=== PATIENT | female | born 1955 | race Caucasian/White ===

== ENCOUNTER 2022-01-29 13:32 | Observation (INO) | payer MEDICARE, OTHER ==
--- NOTE | 2022-01-29 14:54 | XR ---
EXAMINATION TYPE: XR chest 2V DATE OF EXAM: 01/29/2022 COMPARISON: NONE HISTORY: Shortness of breath TECHNIQUE: Frontal and lateral views of the chest are obtained. FINDINGS: Scattered senescent parenchymal changes noted. Hyperinflation compatible with COPD. Prominence of the pulmonary interstitium at the mid and lower lung zones. I cannot exclude atypical p neumonia. Correlate clinically. Heart size is stable. Mediastinal structures are stable and grossly unremarkable. No evidence for hilar prominence. Degenerative changes dorsal spine. IMPRESSION: 1. Prominence of the pulmonary interstitium at the mid and lower lung zones. I cannot exclude atypica l pneumonia. Correlate clinically.
--- NOTE | 2022-01-29 17:43 | ED ---
SOB HPI - General Chief Complaint: Shortness of Breath Stated Complaint: COPD Time Seen by Provider: 01/29/22 18:15 Source: patient Mode of arrival: ambulatory Limitations: no limitations - History of Present Illness Initial Comments: 66-year-old female past history of COPD, daily heroin use presents to the emergency room from [facility]. She states that she went to [facility] today to check and for rehab. They took admission vitals and found that the patient had oxygen saturations of 83% on room air. They watched her for approximately an hour without any improvement in her oxygen saturations. She does admit to a history of COPD however she does not wear oxygen and does not require the use of inhalers. Reports that she has not had any issues with hypoxia. She denies any fevers, chills or cough. No chest pain. No previous history cardiac disease. No calf pain or swelling. Due to her persistent hypoxia the patient was transported to the hospital. Later in the patient's evaluation she admits that she took 15 Klonopin at 9 AM this morning as she was told that she would not receive any of her benzos while in rehab. Patient does demonstrate some level of sedation however respirations remain normal. No other alleviating, precipitating or modifying factors - Related Data Home Medications Medication Instructions Recorded Confirmed Albuterol Sulfate [Albuterol 2 puff PO RT-QID PRN 01/29/22 01/29/22 Sulfate Hfa] Cyclobenzaprine [Flexeril] 10 mg PO TID 01/29/22 01/29/22 QUEtiapine FUMARATE [SEROquel] 200 mg PO BID 01/29/22 01/29/22 clonazePAM [KlonoPIN] 1 mg PO TID PRN 01/29/22 01/29/22 Previous Rx's Medication Instructions Recorded Budesonide-Formot 160-4.5 Mcg 2 puff INHALATION BID #1 each 01/30/22 [Symbicort 160-4.5 Mcg Inhaler] Ipratropium/Albuter 20-100Mcg 1 puff INHALATION QID #1 gm 01/30/22 [Combivent Respimat 20-100Mcg Inhaler] predniSONE 10 mg PO DIRECTED #30 tab 01/30/22 Allergies Allergy/AdvReac Type Severity Reaction Status Date / Time aspirin Allergy Unknown Verified 01/29/22 20:42 ibuprofen [From Motrin] Allergy Unknown Verified 01/29/22 20:42 Penicillins Allergy Unknown Verified 01/29/22 20:42 Review of Systems ROS Statement: Those systems with pertinent positive or pertinent negative responses have been documented in the HPI. ROS Other: All systems not noted in ROS Statement are negative. Past Medical History Past Medical History: COPD History of Any Multi-Drug Resistant Organisms: None Reported Additional Past Surgical History / Comment(s): orthopedic surgery Past Psychological History: No Psychological Hx Reported Smoking Status: Current every day smoker Past Alcohol Use History: Daily Past Drug Use History: Heroin General Exam Limitations: no limitations General appearance: alert, in no apparent distress, other (appears somewhat sedated) Head exam: Present: atraumatic, normocephalic, normal inspection Eye exam: Present: normal appearance, PERRL, EOMI. Absent: scleral icterus, conjunctival injection, periorbital swelling ENT exam: Present: normal exam, mucous membranes moist Neck exam: Present: normal inspection. Absent: tenderness, meningismus, lymphadenopathy Respiratory exam: Present: normal lung sounds bilaterally. Absent: respiratory distress, wheezes, rales, rhonchi, stridor Cardiovascular Exam: Present: regular rate, normal rhythm, normal heart sounds. Absent: systolic murmur, diastolic murmur, rubs, gallop, clicks GI/Abdominal exam: Present: soft, normal bowel sounds. Absent: distended, tenderness, guarding, rebound, rigid Extremities exam: Present: normal inspection, full ROM, normal capillary refill. Absent: tenderness, pedal edema, joint swelling, calf tenderness Back exam: Present: normal inspection Neurological exam: Present: alert, oriented X3, CN II-XII intact Psychiatric exam: Present: normal mood, flat affect Skin exam: Present: warm, dry, intact, normal color. Absent: rash Course Vital Signs 01/29/22 01/29/22 01/29/22 13:53 16:45 17:00 Temperature 98.0 F Pulse Rate 106 H 90 Respiratory 20 18 20 Rate Blood Pressure 98/61 O2 Sat by Pulse 97 94 L Oximetry 01/29/22 01/29/22 01/29/22 18:00 18:20 19:03 Temperature Pulse Rate 100 89 Respiratory 20 Rate Blood Pressure 102/58 O2 Sat by Pulse 88 L 92 L Oximetry 01/29/22 19:11 Temperature Pulse Rate 88 Respiratory Rate Blood Pressure O2 Sat by Pulse Oximetry Medical Decision Making - Medical Decision Making Arrival patient was placed into room 15. Thorough history and physical exam was performed. Laboratory studies are conducted and chest x-ray is performed. Chest x-ray demonstrates prominence of the mid and lower lung zones. Cannot exclude an atypical pneumonia. Laboratory studies revealed a lactic acid 2.1. Coumadin influenza are not detected. Troponin not detected. Patient was given a DuoNeb breathing treatment. She is additionally given 125 mg of Solu-Medrol. Blood cultures obtained. Patient given Rocephin and azithromycin. Results are discussed with the patient. She is requiring 3 L of oxygen at this time to maintain saturations of 93%. As the patient is oxygen dependent I did recommend admission for pulmonology consultation for which the patient was agreeable. Spoke with Dr. Faajrdo who agreed to admit the patient to the floor - Lab Data Result diagrams: 01/30/22 05:23 01/30/22 05:23 Lab Results 01/29/22 01/29/22 01/29/22 Range/Units 19:01 19:01 19:01 WBC 4.3 (3.8-10.6) k/uL RBC 4.41 (3.80-5.40) m/uL Hgb 14.2 (11.4-16.0) gm/dL Hct 43.4 (34.0-46.0) % MCV 98.4 (80.0-100.0) fL MCH 32.1 (25.0-35.0) pg MCHC 32.7 (31.0-37.0) g/dL RDW 13.1 (11.5-15.5) % Plt Count 102 L (150-450) k/uL MPV 9.3 Neutrophils % 55 % Lymphocytes % 33 % Monocytes % 6 % Eosinophils % 2 % Basophils % 1 % Neutrophils # 2.3 (1.3-7.7) k/uL Lymphocytes # 1.4 (1.0-4.8) k/uL Monocytes # 0.3 (0-1.0) k/uL Eosinophils # 0.1 (0-0.7) k/uL Basophils # 0.0 (0-0.2) k/uL PT 11.0 (9.0-12.0) sec INR 1.0 (<1.2) APTT 25.7 (22.0-30.0) sec D-Dimer 0.40 (<0.60) mg/L FEU Sodium 139 (137-145) mmol/L Potassium 4.1 (3.5-5.1) mmol/L Chloride 102 (98-107) mmol/L Carbon Dioxide 31 H (22-30) mmol/L Anion Gap 6 mmol/L BUN 47 H (7-17) mg/dL Creatinine 0.85 (0.52-1.04) mg/dL Est GFR (CKD-EPI)AfAm 84 (>60 ml/min/1.73 sqM) Est GFR (CKD-EPI)NonAf 72 (>60 ml/min/1.73 sqM) Glucose 146 H (74-99) mg/dL Lactic Ac Sepsis Rflx Plasma Lactic Acid Dontrell (0.7-2.0) mmol/L Calcium 8.5 (8.4-10.2) mg/dL Magnesium 2.2 (1.6-2.3) mg/dL Total Bilirubin 0.3 (0.2-1.3) mg/dL AST 30 (14-36) U/L ALT 17 (4-34) U/L Alkaline Phosphatase 95 (38-126) U/L Troponin I (0.000-0.034) ng/mL NT-Pro-B Natriuret Pep pg/mL Total Protein 6.8 (6.3-8.2) g/dL Albumin 4.1 (3.5-5.0) g/dL Coronavirus (PCR) (Not Detectd) Influenza Type A RNA (Not Detectd) Influenza Type B (PCR) (Not Detectd) 01/29/22 01/29/22 01/29/22 Range/Units 19:01 19:01 19:01 WBC (3.8-10.6) k/uL RBC (3.80-5.40) m/uL Hgb (11.4-16.0) gm/dL Hct (34.0-46.0) % MCV (80.0-100.0) fL MCH (25.0-35.0) pg MCHC (31.0-37.0) g/dL RDW (11.5-15.5) % Plt Count (150-450) k/uL MPV Neutrophils % % Lymphocytes % % Monocytes % % Eosinophils % % Basophils % % Neutrophils # (1.3-7.7) k/uL Lymphocytes # (1.0-4.8) k/uL Monocytes # (0-1.0) k/uL Eosinophils # (0-0.7) k/uL Basophils # (0-0.2) k/uL PT (9.0-12.0) sec INR (<1.2) APTT (22.0-30.0) sec D-Dimer (<0.60) mg/L FEU Sodium (137-145) mmol/L Potassium (3.5-5.1) mmol/L Chloride (98-107) mmol/L Carbon Dioxide (22-30) mmol/L Anion Gap mmol/L BUN (7-17) mg/dL Creatinine (0.52-1.04) mg/dL Est GFR (CKD-EPI)AfAm (>60 ml/min/1.73 sqM) Est GFR (CKD-EPI)NonAf (>60 ml/min/1.73 sqM) Glucose (74-99) mg/dL Lactic Ac Sepsis Rflx Plasma Lactic Acid Dontrell 2.1 H* (0.7-2.0) mmol/L Calcium (8.4-10.2) mg/dL Magnesium (1.6-2.3) mg/dL Total Bilirubin (0.2-1.3) mg/dL AST (14-36) U/L ALT (4-34) U/L Alkaline Phosphatase (38-126) U/L Troponin I <0.012 (0.000-0.034) ng/mL NT-Pro-B Natriuret Pep pg/mL Total Protein (6.3-8.2) g/dL Albumin (3.5-5.0) g/dL Coronavirus (PCR) (Not Detectd) Influenza Type A RNA Not Detected (Not Detectd) Influenza Type B (PCR) Not Detected (Not Detectd) 01/29/22 01/29/22 01/29/22 Range/Units 19:01 19:40 20:51 WBC (3.8-10.6) k/uL RBC (3.80-5.40) m/uL Hgb (11.4-16.0) gm/dL Hct (34.0-46.0) % MCV (80.0-100.0) fL MCH (25.0-35.0) pg MCHC (31.0-37.0) g/dL RDW (11.5-15.5) % Plt Count (150-450) k/uL MPV Neutrophils % % Lymphocytes % % Monocytes % % Eosinophils % % Basophils % % Neutrophils # (1.3-7.7) k/uL Lymphocytes # (1.0-4.8) k/uL Monocytes # (0-1.0) k/uL Eosinophils # (0-0.7) k/uL Basophils # (0-0.2) k/uL PT (9.0-12.0) sec INR (<1.2) APTT (22.0-30.0) sec D-Dimer (<0.60) mg/L FEU Sodium (137-145) mmol/L Potassium (3.5-5.1) mmol/L Chloride (98-107) mmol/L Carbon Dioxide (22-30) mmol/L Anion Gap mmol/L BUN (7-17) mg/dL Creatinine (0.52-1.04) mg/dL Est GFR (CKD-EPI)AfAm (>60 ml/min/1.73 sqM) Est GFR (CKD-EPI)NonAf (>60 ml/min/1.73 sqM) Glucose (74-99) mg/dL Lactic Ac Sepsis Rflx Y Plasma Lactic Acid Dontrell (0.7-2.0) mmol/L Calcium (8.4-10.2) mg/dL Magnesium (1.6-2.3) mg/dL Total Bilirubin (0.2-1.3) mg/dL AST (14-36) U/L ALT (4-34) U/L Alkaline Phosphatase (38-126) U/L Troponin I (0.000-0.034) ng/mL NT-Pro-B Natriuret Pep 85 pg/mL Total Protein (6.3-8.2) g/dL Albumin (3.5-5.0) g/dL Coronavirus (PCR) Not Detected (Not Detectd) Influenza Type A RNA (Not Detectd) Influenza Type B (PCR) (Not Detectd) - EKG Data EKG Comments: EKG demonstrates sinus rhythm with rate of 90. WI interval 160. QRS 85. QTC of 404. No acute ST segment elevations or depressions. Baseline artifact V1 and V2. EKG was interpreted by myself Disposition Clinical Impression: COPD (chronic obstructive pulmonary disease) Disposition: ADMITTED IP TO THIS HOSP Condition: Stable Is patient prescribed a controlled substance at d/c from ED?: No Time of Disposition: 17:43 Decision to Admit Reason: Admit from EC Decision Date: 01/29/22 Decision Time: 21:54
[2022-01-29] MEDS ORDERED: IPRATROPIUM-ALBUTEROL 3 ML NEB INHALATION STA (18:27)
[2022-01-29 19:23] LABS: Basophils % (A) 1 %; Eosinophils # (A) 0.1 k/uL (0-0.7); Eosinophils % (A) 2 %; HCT 43.4 % (34.0-46.0); HGB 14.2 gm/dL (11.4-16.0); Lymphocytes # (A) 1.4 k/uL (1.0-4.8); Lymphocytes % (A) 33 %; MCH 32.1 pg (25.0-35.0); MCHC 32.7 g/dL (31.0-37.0); MCV 98.4 fL (80.0-100.0); Mean Platelet Volume 9.3; Monocytes # (A) 0.3 k/uL (0-1.0); Monocytes % (A) 6 %; Neutrophils # (A) 2.3 k/uL (1.3-7.7); Neutrophils % (A) 55 %; Platelet Count 102 k/uL (150-450); RBC 4.41 m/uL (3.80-5.40); RDW 13.1 % (11.5-15.5); WBC 4.3 k/uL (3.8-10.6)
[2022-01-29 19:24] LABS: Albumin 4.1 g/dL (3.5-5.0); Calcium 8.5 mg/dL (8.4-10.2); Magnesium 2.2 mg/dL (1.6-2.3); Potassium 4.1 mmol/L (3.5-5.1); Total Bilirubin 0.3 mg/dL (0.2-1.3); Total Protein 6.8 g/dL (6.3-8.2)
[2022-01-29 19:33] LABS: Partial Thromboplastin Time 25.7 sec (22.0-30.0)
[2022-01-29] MEDS ORDERED: cefTRIAXone IN SWFI 1,000 MG/10 ML SYRINGE IVP STA (20:33)
[2022-01-29] MEDS ORDERED: AZITHROMYCIN 500 MG in SODIUM CHLORIDE 0.9% 250 ML IVPB STA (20:33)
[2022-01-29] MEDS ORDERED: methylPREDNISolone SOD SUCCI 125 MG/2 ML VIAL IV STA (20:33)
[2022-01-29] MEDS ORDERED: NALOXONE 0.4 MG/ML 1 ML VIAL IV PRN (21:54)
[2022-01-29] MEDS ORDERED: ONDANSETRON 4 MG/2 ML VIAL IVP PRN (22:05)
[2022-01-29] MEDS: clonazePAM 1 MG TAB PO PRN (23:46)
[2022-01-29] MEDS: QUEtiapine 200 MG TAB PO SCH (23:47)
[2022-01-29] MEDS ORDERED: IPRATROPIUM-ALBUTEROL 3 ML NEB INHALATION PRN (23:57)
[2022-01-30] MEDS ORDERED: IPRATROPIUM-ALBUTEROL 3 ML NEB INHALATION SCH
[2022-01-30] MEDS: methylPREDNISolone SOD SUCCI 125 MG/2 ML VIAL IV SCH ×3 (04:51→20:30)
[2022-01-30 05:58] LABS: Basophils % (A) 0 %; Eosinophils % (A) 0 %; HCT 45.6 % (34.0-46.0); Lymphocytes # (A) 0.5 k/uL (1.0-4.8); Lymphocytes % (A) 13 %; MCH 32.2 pg (25.0-35.0); MCV 97.6 fL (80.0-100.0); Mean Platelet Volume 9.4; Monocytes # (A) 0.1 k/uL (0-1.0); Monocytes % (A) 2 %; Neutrophils # (A) 3.1 k/uL (1.3-7.7); Neutrophils % (A) 84 %; Platelet Count 136 k/uL (150-450); RBC 4.67 m/uL (3.80-5.40); RDW 12.7 % (11.5-15.5); WBC 3.7 k/uL (3.8-10.6)
[2022-01-30 06:00] LABS: Potassium 4.5 mmol/L (3.5-5.1)
[2022-01-30] MEDS: IPRATROPIUM-ALBUTEROL 3 ML NEB INHALATION SCH ×4 (07:15→19:24)
[2022-01-30] MEDS: QUEtiapine 200 MG TAB PO SCH ×2 (09:44→20:30)
[2022-01-30] MEDS: CYCLOBENZAPRINE 10 MG TAB PO SCH ×3 (09:44→20:30)
[2022-01-30] MEDS: clonazePAM 1 MG TAB PO PRN (13:52)
--- NOTE | 2022-01-30 14:14 | P.CNPUL ---
History of Present Illness Consult date: 01/30/22 Requesting physician: Loc Fajardo Reason for consult: COPD Chief complaint: Hypoxemia History of present illness: This is a 66-year-old female patient with a known history of chronic obstructive pulmonary disease, chronic and ongoing tobacco dependence of 50 years, daily alcohol use, heroin use, anxiety. Yesterday she was checking in to [facility] and initial vital signs revealed a room air oxygen of 83%. Based on that she was transferred here to the emergency department. She had no symptoms. No worsening shortness of breath, cough or congestion. She states she has an albuterol rescue inhaler that she rarely uses. Chest x-ray revealed pulmonary interstitial prominence of the mid and lower lung mills. Prior to rehabilitation she was worried she would not able to take all of her medications so she took approximately 15 Klonopin at 9:00 yesterday morning. White count 2.7. Hemoglobin 15.0. Platelets 136. Sodium 140. Potassium 4.5. Bicarb 31. BUN 36. Creatinine 0.81. Aparicio virus by PCR not detected. Influenza screen negative. She was initiated and DuoNeb inhalations, IV Solu- Medrol. She is seen today in consultation on the regular medical floor. She is currently sitting up at the bedside having breakfast. Awake and alert in no acute distress. Somewhat restless. Denies any worsening shortness of breath, cough or congestion. No fever or chills. Currently maintaining O2 saturations at 93% on room air. Afebrile. Hemodynamically stable. Review of Systems REVIEW OF SYSTEMS: CONSTITUTIONAL: Denies any recent significant weight loss or weight gain. EYES: Denies change in vision. EARS, NOSE, MOUTH, THROAT: Denies headaches, denies sore throat. CARDIOVASCULAR: Denies chest pain, palpitations or syncopal episodes. RESPIRATORY: Denies shortness of breath, cough, congestion or hemoptysis. GASTROINTESTINAL: Denies change in appetite, denies abdominal pain GENITOURINARY: Denies hematuria, denies infections. MUSKULOSKELETAL: Denies pain, denies swelling. INTEGUMENTARY: Denies rash, denies eczema. NEUROLOGICAL: Denies recent memory loss, no recent seizure activity. PSYCHIATRIC: Denies anxiety, denies depression. HEMATOLOGIC/LYMPHATIC: Denies anemia, denies enlarged lymph nodes. Past Medical History Past Medical History: COPD, Musculoskeletal Disorder Additional Past Medical History / Comment(s): muscular dystrophy; ibs; hepatitis c-no treatment History of Any Multi-Drug Resistant Organisms: None Reported Additional Past Surgical History / Comment(s): orthopedic surgery. breast implants 2003. bowel surgery Past Anesthesia/Blood Transfusion Reactions: No Reported Reaction Past Psychological History: No Psychological Hx Reported Smoking Status: Current every day smoker Past Alcohol Use History: None Reported Past Drug Use History: Heroin Medications and Allergies Home Medications Medication Instructions Recorded Confirmed Type Albuterol Sulfate [Albuterol 2 puff PO RT-QID PRN 01/29/22 01/29/22 History Sulfate Hfa] Cyclobenzaprine [Flexeril] 10 mg PO TID 01/29/22 01/29/22 History QUEtiapine FUMARATE [SEROquel] 200 mg PO BID 01/29/22 01/29/22 History clonazePAM [KlonoPIN] 1 mg PO TID PRN 01/29/22 01/29/22 History Budesonide-Formot 160-4.5 Mcg 2 puff INHALATION BID #1 each 01/30/22 Rx [Symbicort 160-4.5 Mcg Inhaler] Ipratropium/Albuter 20-100Mcg 1 puff INHALATION QID #1 gm 01/30/22 Rx [Combivent Respimat 20-100Mcg Inhaler] predniSONE 10 mg PO DIRECTED #30 tab 01/30/22 Rx Allergies Allergy/AdvReac Type Severity Reaction Status Date / Time aspirin Allergy Unknown Verified 01/29/22 20:42 ibuprofen [From Motrin] Allergy Unknown Verified 01/29/22 20:42 Penicillins Allergy Unknown Verified 01/29/22 20:42 Physical Exam Vitals: Vital Signs Temp Pulse Pulse Resp BP BP Pulse Ox 01/30/22 11:05 88 01/30/22 10:58 84 01/30/22 08:55 83 18 01/30/22 08:00 83 18 131/67 93 L 01/30/22 07:26 92 01/30/22 07:17 88 01/30/22 04:37 98.3 F 89 16 125/78 91 L 01/29/22 23:23 97.9 F 87 16 141/84 91 L 01/29/22 19:11 88 01/29/22 19:03 89 01/29/22 18:20 100 20 102/58 92 L 01/29/22 18:00 88 L 01/29/22 17:00 20 01/29/22 16:45 90 18 94 L Intake and Output 01/29/22 01/30/22 01/30/22 22:59 06:59 14:59 Other: # Voids 1 Weight 66.678 kg GENERAL EXAM: Alert, pleasant 66-year-old female, on room air with 90s 3% O2 saturation,, comfortable in no apparent distress. HEAD: Normocephalic. EYES: Normal reaction of pupils, equal size. NOSE: Clear with pink turbinates. THROAT: No erythema or exudates. NECK: No masses, no JVD. CHEST: No chest wall deformity. LUNGS: Equal air entry with no crackles, wheeze, rhonchi or dullness. CVS: S1 and S2 normal with no audible murmur, regular rhythm. ABDOMEN: No hepatosplenomegaly, normal bowel sounds, no guarding or rigidity. SPINE: No scoliosis or deformity SKIN: No rashes CENTRAL NERVOUS SYSTEM: No focal deficits, tone is normal in all 4 extremities. EXTREMITIES: There is no peripheral edema. No clubbing, no cyanosis. Peripheral pulses are intact. Results - Laboratory Findings CBC and BMP: 01/30/22 05:23 01/30/22 05:23 PT/INR, D-dimer PT 11.0 sec (9.0-12.0) 01/29/22 19:01 INR 1.0 (<1.2) 01/29/22 19:01 D-Dimer 0.40 mg/L FEU (<0.60) 01/29/22 19:01 Abnormal lab findings: Abnormal Labs 01/29/22 01/29/22 01/29/22 19:01 19:01 19:01 WBC Plt Count 102 L Lymphocytes # Carbon Dioxide 31 H BUN 47 H Glucose 146 H Plasma Lactic Acid Dontrell 2.1 H* 01/30/22 01/30/22 05:23 05:23 WBC 3.7 L Plt Count 136 L Lymphocytes # 0.5 L Carbon Dioxide 31 H BUN 36 H Glucose 139 H Plasma Lactic Acid Dontrell - Diagnostic Findings Chest x-ray: image reviewed Assessment and Plan Assessment: Hypoxemic respiratory failure suspect secondary to underlying COPD and possibly hypoventilation due to taking 15 Klonopin tablets earlier in the morning prior to checking into [facility] Chronic and ongoing tobacco dependence of 53 years Heroin drug use Daily alcohol use History of anxiety, on Seroquel and Klonopin in the outpatient setting Plan: The patient was seen and evaluated Chest x-ray, labs and medications reviewed Maintaining O2 saturations in the 90s on room air Stable for transfer back to [facility] today Continue albuterol HFA, add Symbicort Encouraged regarding the importance of complete smoking cessation Encouraged regarding the importance of drug and alcohol cessation Follow up with her PCP post rehabilitation I have personally seen and examined the patient, performed the documentation and the assessment and plan as written. Number of minutes spent on the visit: 20.
[2022-01-30] MEDS: SYMBICORT 160-4.5 MCG INHALER INHALATION SCH (19:24)
[2022-01-31] MEDS: clonazePAM 1 MG TAB PO PRN ×2 (00:19→16:22)
--- NOTE | 2022-01-31 03:37 | HP ---
HISTORY AND PHYSICAL This is a combined history and physical and discharge summary. CHIEF COMPLAINT: Shortness of breath. HISTORY OF PRESENT ILLNESS: This 66-year-old woman with a past medical history of COPD, multiple medical issues, [place] was evaluated in [facility] when the patient was found to be hypoxic, the patient was sent to [facility]. The patient was found to have COPD exacerbation. The patient was given incentive spirometer. The patient is feeling better. Dr. Mahan from Pulmonary has recommended that the patient be discharged. The patient is medically cleared to go to [facility] at this time. There is no history of any fever, rigors, or chills. PAST MEDICAL HISTORY: Reviewed, chart also reviewed, includes COPD, substance abuse, heroin. HOME MEDICATIONS: Again reviewed, include Klonopin, dose and rest of the medication noted. ALLERGIES: Reviewed, include aspirin. FAMILY HISTORY: No history of heart disease or strokes in the family. SOCIAL HISTORY: Smoking and substances as mentioned earlier. REVIEW OF SYSTEMS: 14-point review of systems is negative except as mentioned earlier. PHYSICAL EXAMINATION: VITAL SIGNS: Pulse is 83, blood pressure 130/67, respirations 18. HEENT: Conjunctivae normal. CARDIOVASCULAR: S1, S2 muffled. RESPIRATIONS: Breath sounds diminished at the bases. A few scattered rhonchi and crackles. ABDOMEN: Soft, nontender. LEGS: No edema. No swelling. NERVOUS SYSTEM: No focal deficit. SKIN: No ulcer, rash, bleeding. JOINTS: No active deforming arthropathy. LABS: WBC 4.3. The rest of the labs are noted. ASSESSMENT: 1. Chronic obstructive pulmonary disease exacerbation. 2. Substance abuse history. 3. Chronic obstructive pulmonary disease. 4. History of hepatitis C. 5. Multiple medical issues. 6. Full code. RECOMMENDATIONS AND DISCUSSION: In this 66-year-old woman who presented with COPD exacerbation, improved significantly with bronchodilators, steroids _ Dr. Mahan has recommended that the patient be discharged and follow up with . Discharge medications are as follows: 1. DuoNeb q.i.d. and p.r.n. 2. Prednisone taper. 3. Symbicort 160/4.5 two puffs b.i.d. Resume the rest of the medications. Follow up with Dr. Mahan as recommended. Follow up with primary care physician as recommended. Once again, the patient is stable, but overall prognosis is guarded. MMODL / IJN: [id number] / LONNY
[2022-01-31] MEDS: methylPREDNISolone SOD SUCCI 125 MG/2 ML VIAL IV SCH (06:23)
[2022-01-31] MEDS ORDERED: ACETAMINOPHEN TAB 500 MG TAB PO PRN (07:25)
[2022-01-31] MEDS: CYCLOBENZAPRINE 10 MG TAB PO SCH ×3 (08:17→22:21)
[2022-01-31] MEDS: QUEtiapine 200 MG TAB PO SCH ×2 (08:17→18:35)
[2022-01-31] MEDS: predniSONE 20 MG TAB PO SCH (08:17)
[2022-01-31] MEDS: SYMBICORT 160-4.5 MCG INHALER INHALATION SCH ×2 (08:21→20:49)
[2022-01-31] MEDS: IPRATROPIUM-ALBUTEROL 3 ML NEB INHALATION SCH ×4 (08:21→20:49)
--- NOTE | 2022-01-31 17:37 | P.PN ---
Subjective Progress Note Date: 01/31/22 Principal diagnosis: Shortness of breath. This is a 66-year-old female patient with a known history of chronic obstructive pulmonary disease, chronic and ongoing tobacco dependence of 50 years, daily alcohol use, heroin use, anxiety. Yesterday she was checking in to [facility] and initial vital signs revealed a room air oxygen of 83%. Based on that she was transferred here to the emergency department. She had no symptoms. No worsening shortness of breath, cough or congestion. She states she has an albuterol rescue inhaler that she rarely uses. Chest x-ray revealed pulmonary interstitial prominence of the mid and lower lung mills. Prior to rehabilitation she was worried she would not able to take all of her medications so she took approximately 15 Klonopin at 9:00 yesterday morning. White count 2.7. Hemoglobin 15.0. Platelets 136. Sodium 140. Potassium 4.5. Bicarb 31. BUN 36. Creatinine 0.81. Aparicio virus by PCR not detected. Influenza screen negative. She was initiated and DuoNeb inhalations, IV Solu- Medrol. She is seen today in consultation on the regular medical floor. She is currently sitting up at the bedside having breakfast. Awake and alert in no acute distress. Somewhat restless. Denies any worsening shortness of breath, cough or congestion. No fever or chills. Currently maintaining O2 saturations at 93% on room air. Afebrile. Hemodynamically stable. Progress note dated 01/31/2022. This is a 66-year-old female that we saw yesterday in consultation. She came from [facility]. The patient has a history of COPD from chronic tobacco use. The patient is currently on room air. She's not receiving any IV fluids. Her breathing is improved. She was supposed to be taken back to [facility] yesterday, but apparently that did not occur. She does admit to coughing, and occasional phlegm production. No fever or chills or chest pain. No additional blood work today. Objective - Vital Signs Vital signs: Vital Signs Temp 97.7 F 01/31/22 11:45 Pulse 94 01/31/22 11:45 Resp 18 01/31/22 11:45 BP 122/70 01/31/22 11:45 Pulse Ox 94 L 01/31/22 11:45 FiO2 Intake & Output 11/19/22 11/20/22 11/20/22 18:59 06:59 18:59 Intake Total 360 560 Balance 360 560 Intake: Oral 360 560 Other: Voiding Method Toilet Toilet # Voids 5 2 # Bowel Movements 1 1 - Exam No acute distress, oriented 3. No audible wheezing. No respiratory distress. Currently on room air. HEENT examination is grossly unremarkable. Neck supple. Full range of motion. No adenopathy thyromegaly or neck vein distention. Cardiovascular examination reveals regular rhythm rate. S1-S2 normal. No S3 or S4. No discernible murmur noted. Heart rate 94 bpm. Lungs reveal scattered expiratory rhonchi and wheezes. Breath sounds are improved. Breath sounds are equal bilaterally. There are no crackles. Room air saturation is 94%. Abdomen soft bowel sounds are heard. No masses or tenderness. Extremities are intact. No cyanosis clubbing or edema. Skin is without rash or lesion. Neurologic examination is brief but nonfocal. - Labs CBC & Chem 7: 01/30/22 05:23 01/30/22 05:23 Assessment and Plan Assessment: Hypoxemic respiratory failure, secondary to underlying COPD and possibly hypoventilation due to taking 15 Klonopin tablets earlier in the morning prior to checking into [facility]. Chronic and ongoing tobacco dependence of 53 years. Heroin drug use. Daily alcohol use. History of anxiety. Plan: Plan dated 01/31/2022. The patient appears to be relatively stable. She's on room air. Her breathing is improved. She is on appropriate medications. She is counseled about the importance of smoking cessation. She is also counseled about the fact that she should stop using illegal/illicit drugs. The patient has been smoking for more than 50 years. Additional recommendations and suggestions are forthcoming. The patient was to be discharged yesterday, but for some reason, there was no body available to get her. Time with Patient: Less than 30
[2022-01-31] MEDS: LORazepam 0.5 MG TAB PO PRN (19:31)
[2022-02-01] MEDS: clonazePAM 1 MG TAB PO PRN ×2 (01:20→09:35)
[2022-02-01] MEDS: LORazepam 0.5 MG TAB PO PRN ×2 (03:40→12:43)
--- NOTE | 2022-02-01 05:05 | PN ---
PROGRESS NOTE DATE OF SERVICE: 01/31/2022 SUBJECTIVE: This is a 66-year-old woman who was admitted with COPD acute exacerbation, is being closely monitored. The patient also had substance abuse issues also. The patient is slated to go to [place] from were actually originally the patient was sent to ER. No chest pain. No palpitation. OBJECTIVE: VITAL SIGNS: Pulse is 94, blood pressure 120/70, respirations 18. CHEST: A few scattered rhonchi and crackles. CARDIOVASCULAR: S1, S2. ABDOMEN: Soft. LABS: Reviewed. ASSESSMENT: 1. Chronic obstructive pulmonary disease acute exacerbation. 2. Substance abuse history. 3. Chronic obstructive pulmonary disease history. 4. History of hepatitis C. 5. Multiple medical issues. 6. FULL CODE. RECOMMENDATIONS AND DISCUSSION: Recommend to continue current management and symptomatic treatment. Continue the bronchodilators and steroids. Otherwise, the Pleat [employer] and [employer] Lieutenant to evaluate the patient for possibly arrange [facility] tomorrow. Guarded prognosis. Further recommendations to follow. MMODL / IJN: [id number] /
[2022-02-01] MEDS: SYMBICORT 160-4.5 MCG INHALER INHALATION SCH (07:12)
[2022-02-01] MEDS: IPRATROPIUM-ALBUTEROL 3 ML NEB INHALATION SCH ×2 (07:12→11:17)
[2022-02-01] MEDS: CYCLOBENZAPRINE 10 MG TAB PO SCH (09:36)
[2022-02-01] MEDS: QUEtiapine 200 MG TAB PO SCH (09:36)
[2022-02-01] MEDS: predniSONE 20 MG TAB PO SCH (09:36)
[2022-02-01 13:46] VITALS: BP 133/88; PULSE 85; RESP 16; TEMP 97.8
--- NOTE | 2022-02-02 10:40 | P.DS ---
Providers Date of admission: 01/29/22 21:54 Expected date of discharge: 02/01/22 Attending physician: Loc Fajardo MD Consults: 01/29/22 22:05 Consult Physician Urgent Consulting Provider: Edgardo Mahan Consult Reason/Comments: acute hypoxic resp failure, cap Do you want consulting provider notified?: Yes Primary care physician: Stated None Hospital Course: Final diagnosis Chronic obstructive pulmonary disease, exacerbation Substance abuse history Chronic obstructive pulmonary disease history GI prophylaxis Full code Discharge disposition Patient is being discharged in a stable condition with guarded prognosis to home. Patient will follow-up with Dr. Parikh in the outpatient setting upon discharge. Patient is to continue to wean off Klonopin and follow-up with [facility] for inpatient rehab. Total time taken is greater than 35 minutes. Hospital course This is a 66-year-old female who was recently admitted with COPD acute exacerbation and also having issues with substance abuse. Patient apparently went to [place] although took a number of Klonipin prior to admission and was felt to having withdrawals and hypoxia and sent to the hospital for medical evaluation. Patient was admitted and placed on DuoNeb treatments and continued on medications. Per social work patient is not able to go to [place] until weaned off Klonopin for rehab. Not sure of this policy but instructed the patient to continue following with [facility] and also [place] [facility] about admission and also following up with her primary care provider on dischar ge. Patient adamant about going home and reports her boyfriend will pick her up. Currently no reports of chest pain, shortness of breath, or palpitations. Patient is afebrile. No reports of nausea or vomiting and patient is tolerating diet. Patient will be discharged home today. Guarded prognosis. Physical exam: Gen: This is a 66-year-old female awake, alert and oriented 3, well-developed, well-nourished HEENT: Head is atraumatic, normocephalic. Pupils equal, round. Sclerae is anicteric. NECK: Supple. No JVD. No lymphadenopathy. No thyromegaly. LUNGS: Diminished breath sounds bilaterally with some scattered rhonchi and mild expiratory wheezing. No intercostal retractions. HEART: S1, S2 are muffled ABDOMEN: Soft. Bowel sounds are present. No masses. No tenderness. EXTREMITIES: No pedal edema. No calf tenderness. NEUROLOGICAL: Patient is awake, alert and oriented x3. Cranial nerves 2 through 12 are grossly intact. Please refer to medication reconciliation sheet for a list of medications. The impression and plan of care has been dictated by Kathy Yu, Nurse Practitioner as directed. Dr. Ramon MD I have performed a history and examination and MDM of this patient, discussed the same with the dictator, and agree with the dictator's assessment and plan as written ,documented as a scribe. Based on total visit time, I have performed more than 50% of the visit. Patient Condition at Discharge: Stable Plan - Discharge Summary Discharge Rx Participant: No New Discharge Prescriptions: New Ipratropium/Albuter 20-100Mcg [Combivent Respimat 20-100Mcg Inhaler] 1 puff INHALATION QID #1 gm Ipratropium/Albuter 20-100Mcg [Combivent Respimat 20-100Mcg Inhaler] 1 puff INHALATION QID 30 Days #4 gm Budesonide-Formot 160-4.5 Mcg [Symbicort 160-4.5 Mcg Inhaler] 2 puff INHALATION RT-BID 30 Days #1 each predniSONE 10 mg PO DIRECTED #30 tab Acetaminophen Tab [Tylenol] 500 mg PO Q6HR PRN tab PRN Reason: Fever And/ Or Pain Continue Albuterol Sulfate [Albuterol Sulfate Hfa] 2 puff PO RT-QID PRN PRN Reason: Shortness Of Breath clonazePAM [KlonoPIN] 1 mg PO TID PRN PRN Reason: Anxiety Cyclobenzaprine [Flexeril] 10 mg PO TID QUEtiapine FUMARATE [SEROquel] 200 mg PO BID Discharge Medication List Albuterol Sulfate [Albuterol Sulfate Hfa] 2 puff PO RT-QID PRN 01/29/22 [History] Cyclobenzaprine [Flexeril] 10 mg PO TID 01/29/22 [History] QUEtiapine FUMARATE [SEROquel] 200 mg PO BID 01/29/22 [History] clonazePAM [KlonoPIN] 1 mg PO TID PRN 01/29/22 [History] Ipratropium/Albuter 20-100Mcg [Combivent Respimat 20-100Mcg Inhaler] 1 puff INHALATION QID #1 gm 01/30/22 [Rx] Acetaminophen Tab [Tylenol] 500 mg PO Q6HR PRN tab 02/01/22 [Rx] Budesonide-Formot 160-4.5 Mcg [Symbicort 160-4.5 Mcg Inhaler] 2 puff INHALATION RT-BID 30 Days #1 each 02/01/22 [Rx] Ipratropium/Albuter 20-100Mcg [Combivent Respimat 20-100Mcg Inhaler] 1 puff INHALATION QID 30 Days #4 gm 02/01/22 [Rx] predniSONE 10 mg PO DIRECTED #30 tab 02/01/22 [Rx] Follow up Appointment(s)/Referral(s): Yassine Parikh MD [REFERRING] - 1-2 days (PLEASE SCHEDULE APPOINTMENT.) Ambulatory/Diagnostic Orders: Complete Blood Count w/diff [LAB.AMB] Location: None Selected Patient Instructions/Handouts: Prednisone (By mouth), Ipratropium/Albuterol (By breathing), Budesonide/Formoterol (By breathing), COPD (Chronic Obstructive Pulmonary Disease) (DC), Polysubstance Abuse (ED) Activity/Diet/Wound Care/Special Instructions: Patient will be going to [place] on discharge Diet as tolerated Activity Limited until seen by Call on Tuesday to schedule Dr's appointments Discharge Disposition: OTHER INSTITUTION NOT DEFINED
== END 2022-02-01 14:30 | disposition other institution (70) ==
LOC: EC 13:32 → 5NMEDONC 21:54 → INTOOBSV 21:54 → 5NMEDONC 22:32 → UNDODISIN 02-01 14:30
PROVIDERS: ADMIT Internal Medicine; ATTEND Internal Medicine
DX: J44.1 Chronic obstructive pulmonary disease with (acute) exacerbation (principal); J96.01 Acute respiratory failure with hypoxia; F17.200 Nicotine dependence, unspecified, uncomplicated; F41.9 Anxiety disorder, unspecified; B19.20 Unspecified viral hepatitis C without hepatic coma; F11.10 Opioid abuse, uncomplicated; Z79.899 Other long term (current) drug therapy; Z79.82 Long term (current) use of aspirin; Z88.0 Allergy status to penicillin; Z99.81 Dependence on supplemental oxygen; Z20.822 Contact with and (suspected) exposure to COVID-19; Z98.82 Breast implant status
CPT/HCPCS: 96365; 96375; 99285; 36415; 94640 ×7; 93005; 85379; 83880; 80053; 80048; 83605; 83735; 84484; 85025 ×2; 85610; 85730; 87502; 87635; 71046; G0378 ×4; J2930 ×2; J0456; J0696; J7512 ×2